=== PATIENT | male | born 1970 ===

== ENCOUNTER 2018-04-20 14:04 | Emergency (ER) | payer BC ==
[2018-04-20 14:16] VITALS: O2SAT 100
[2018-04-20] MEDS ORDERED: Sodium Chloride 0.9% 1,000 ML IV ONE (14:34)
--- NOTE | 2018-04-20 14:49 | C.PDOC ---
History Of Present Illness 47 year old male, with PMH of HTN, presents to ED with complaints of abdominal pain with associated nausea and vomiting since this morning. He reports subjective fever. Patient states he took Pepto-bismol without relief. He was seen today by his primary physician DR Baker who sent him to the ED for blood tests and Ultrasound and possible admission. On arrival to ED patient states the pain has gotten better. Denies having dysuria and hematuria. Time Seen by Provider: 04/20/18 14:23 Chief Complaint (Nursing): Abdominal Pain History Per: Patient History/Exam Limitations: no limitations Onset/Duration Of Symptoms: Hrs Current Symptoms Are (Timing): Still Present Severity: Moderate Past Medical History Reviewed: Historical Data, Nursing Documentation, Vital Signs Vital Signs: Last Vital Signs Temp 98.4 F 04/20/18 14:15 Pulse 88 04/20/18 14:15 Resp 20 04/20/18 14:15 BP 121/79 04/20/18 14:15 Pulse Ox 100 04/20/18 14:15 - Medical History PMH: HTN, Sleep Apnea Surgical History: No Surg Hx Family History: States: No Known Family Hx - Social History Hx Alcohol Use: No Hx Substance Use: No - Immunization History Hx Tetanus Toxoid Vaccination: No Hx Influenza Vaccination: No Hx Pneumococcal Vaccination: No Review Of Systems Except As Marked, All Systems Reviewed And Found Negative. Constitutional: Positive for: Fever (subjective fever). Negative for: Chills Gastrointestinal: Positive for: Nausea, Vomiting, Abdominal Pain Physical Exam - Physical Exam Appears: Non-toxic, No Acute Distress Skin: Normal Color, Warm, Dry Head: Atraumatic, Normacephalic Eye(s): bilateral: Normal Inspection Nose: Normal Oral Mucosa: Moist Neck: Supple Chest: Symmetrical Cardiovascular: Rhythm Regular Respiratory: Normal Breath Sounds, No Rales, No Rhonchi, No Wheezing Gastrointestinal/Abdominal: Soft, Tenderness (minimally tender lower abdomen), No Guarding, No Rebound Neurological/Psych: Oriented x3, Normal Speech ED Course And Treatment - Laboratory Results Result Diagrams: 04/20/18 14:57 04/20/18 14:57 Lab Interpretation: No Acute Changes O2 Sat by Pulse Oximetry: 100 (RA) Pulse Ox Interpretation: Normal - CT Scan/US abd/pelvis Other Rad Studies (CT/US): Read By Radiologist, Radiology Report Reviewed CT/US Interpretation: Accession No. : [id number]. Patient Name / ID : TONYA TREVIZO / [id number]. Exam Date : 04/20/2018 15:41:34 ( Approved ). Study Comment : Sex / Age : M / 47Y. Creator : Leslie Richardson. Dictator : Roxann Crow MD. Merchandise Handler : Banquet Kitchen Supervisor : Roxann Crow MD. Approver2 : Report Date : 04/20/2018 15:50:26. My Comment : . Date of service: 04/20/2018. PROCEDURE: CT Abdomen and Pelvis with contrast. HISTORY: lower abd pain. COMPARISON: None available. TECHNIQUE: Contrast dose: 100 mL Visipaque IV. Radiation dose: Total exam DLP = 1226.71 mGy-cm. This CT exam was performed using one or more of the following dose reduction techniques: Automated exposure control, adjustment of the mA and/or kV according to patient size, and/or use of iterative reconstruction technique. FINDINGS: LOWER THORAX: No visible consolidation, pleural effusion, or pneumothorax. LIVER: Hypoattenuation of the liver compatible with hepatic steatosis. GALLBLADDER AND BILE DUCTS: Unremarkable. PANCREAS: Unrem arkable. SPLEEN: Unremarkable. ADRENALS: Indeterminate 1.5 x 2.4 cm left adrenal gland mass measures approximately 51 HU, not consistent with an adenoma. Indeterminate 1.5 x 1.8 cm right adrenal gland mass measures approximately fifty-eight Hounsfield units, not consistent with an adenoma. KIDNEYS AND URETERS: The kidneys enhance symmetrically. No hydronephrosis or obstructing calculus identified. 16 mm exophytic left lower pole renal hypodense lesion measures approximately 5 HU consistent with a cyst. Too small to characterize 9 mm right renal hypodensity; statistically likely a cyst. VASCULATURE: No aortic aneurysm. No atherosclerotic calcification or mural plaque present. KANCHAN L: Lack of oral contrast limits evaluation for bowel pathology. Bowel loops appear within normal limits of caliber without evidence of obstruction. Diverticulosis without CT evidence of acute diverticulitis. APPENDIX: The appendix appears within normal limits of caliber. No secondary signs of acute appendicitis. PERITONEUM: No significant free fluid. No definite free air. LYMPH NODES: No bulky adenopathy identified. BLADDER: Under distended urinary bladder limits evaluation. REPRODUCTIVE: Prostate gland measures approximately 4.8 x 5.0 cm. BONES: No acute osseous abnormality is detected. OTHER FINDINGS: None. IMPRESSION: Indeterminate 1.5 x 2.4 cm left adrenal gland mass measures approximately 51 HU, not consistent with an adenoma. Indeterminate 1.5 x 1.8 cm right adrenal gland mass measures approximately fifty-eight Hounsfield units, not consistent with an adenoma. recommend further characterization with cross-sectional imaging utilizing adrenal gland protocol. Hypoattenuation of the liver compatible with hepatic steatosis. 16 mm exophytic left lower pole renal hypodense lesion measures approximately 5 HU consistent with a cyst. Too small to characterize 9 mm right renal hypodensity; statistically likely a cyst. Diverticulosis without CT evidence of acute diverticulitis. Medical Decision Making Medical Decision Making: Impression: abdominal pain Plan: * Labs * CT abd/pelvis * IV NS, Pepcid Progress: LAbs and CT reviewed. CT showed indeterminate 1.5 x 2.4 cm left adrenal gland mass measures approximately 51 HU, not consistent with an adenoma. Indeterminate 1.5 x 1.8 cm right adrenal gland mass measures approximately fifty-eight Hounsfield units, not consistent with an adenoma. Diverticulosis without CT evidence of acute diverticulitis. On re-evaluation the patient was resting comfortably and reported feeling better. He has no pain or fever at this time. I explained results to patient and gave copy of lab and CT reports. I recommended he follow up with his doctor and kidney doctor for further eval. Patient understands and stable for discharge Disposition Counseled Patient/Family Regarding: Diagnosis, Need For Followup, Rx Given - Disposition Referrals: Orion Baker [Staff Provider] - Disposition: HOME/ ROUTINE Disposition Time: 16:19 Condition: STABLE Additional Instructions: Your labs were normal. Your CT of abdomen shows diverticulosis and adrenal gland mass, please refer to report provided to you. You will need to follow up with your doctor outpatient for further care. Prescriptions: Famotidine [Pepcid] 20 mg PO DAILY #20 tab Instructions: Diverticulosis (DC) - POA Present On Arrival: None - Clinical Impression Clinical Impression: Abdominal colic, Diverticulosis, Mass of adrenal gland - PA / MAINTENANCE TECHNICIAN / Resident Statement MD/DO has reviewed & agrees with the documentation as recorded. - Scribe Statement The provider has reviewed the documentation as recorded by the Scribe Aurea Moreno Provider Attestation All medical record entries made by the Scribe were at my direction and personally dictated by me. I have reviewed the chart and agree that the record accurately reflects my personal performance of the history, physical exam, medical decision making, and the department course for this patient. I have also personally directed, reviewed, and agree with the discharge instructions and disposition.
[2018-04-20] MEDS ORDERED: Sodium Chloride 0.9% 1,000 ML ONE (14:51)
[2018-04-20 14:58] LABS: SQUAMOUS EPITHIAL < 1 /hpf (0-5); URINE BILIRUBIN NEGATIVE (NEGATIVE); URINE BLOOD 1+ (NEGATIVE); URINE CLARITY Clear (Clear); URINE COLOR Yellow (YELLOW); URINE GLUCOSE (UA) NORMAL (Normal); URINE LEUKOCYTE ESTERASE NEG Leu/uL (Negative); URINE PROTEIN NEGATIVE (NEGATIVE); URINE UROBILINOGEN NORMAL mg/dL (0.2-1.0)
[2018-04-20 15:00] LABS: BASO % 0.2 % (0.0-2.0); EOS % 0.1 % (0.0-4.0); HEMOGLOBIN 16.7 g/dL (12.0-18.0); LYMPH # 0.3 K/uL (1.0-4.3); LYMPH % 2.9 % (20.0-40.0); MEAN CELL VOLUME 85.7 fL (80.0-94.0); MONO # 0.4 K/uL (0.0-0.8); MONO % 3.6 % (0.0-10.0); NEUT # 11.2 K/uL (1.8-7.0); NEUT % 93.2 % (50.0-75.0); PLATELET COUNT 210 K/uL (130-400); RBC 5.56 Mil/uL (4.40-5.90); RED CELL DISTRIBUTION WIDTH 13.5 % (11.5-14.5); WHITE BLOOD COUNT 12.1 K/uL (4.8-10.8)
[2018-04-20 15:12] LABS: ALB/GLOB RATIO 1.5 (1.0-2.1); ALBUMIN 4.6 g/dL (3.5-5.0); ALT/SGPT 50 U/L (21-72); AST/SGOT 35 U/L (17-59); BLOOD UREA NITROGEN 24 mg/dL (9-20); CALCIUM 8.6 mg/dl (8.6-10.4); GFR NON-AFRICAN AMERICAN > 60; LIPASE 33 U/L (23-300)
[2018-04-20] MEDS ORDERED: Iodixanol 320 MG/ML 100 ML BOTTLE IV ONE (15:37)
[2018-04-20 15:38] LABS: BANDS 1 % (0-2); LYMPHOCYTE 3 % (20-40); MONOCYTE 3 % (0-10); NEUTROPHIL 93 % (50-75); PLATELET ESTIMATE NORMAL (NORMAL); TOTAL CELLS COUNTED 100
--- NOTE | 2018-04-20 16:09 | CT ---
Date of service: 04/20/2018 PROCEDURE: CT Abdomen and Pelvis with contrast HISTORY: lower abd pain COMPARISON: None available. TECHNIQUE: Contrast dose: 100 mL Visipaque IV Radiation dose: Total exam DLP = 1226.71 mGy-cm. This CT exam was performed using one or more of the following dose reduction techniques: Automated exposure control, adjustment of the mA and/or kV according to patient size, and/or use of iterative reconstruction technique. FINDINGS: LOWER THORAX: No visible consolidation, pleural effusion, or pneumothorax. LIVER: Hypoattenuation of the liver compatible with hepatic steatosis. GALLBLADDER AND BILE DUCTS: Unremarkable. PANCREAS: Unremarkable. SPLEEN: Unremarkable. ADRENALS: Indeterminate 1.5 x 2.4 cm left adrenal gland mass measures approximately 51 HU, not consistent with an adenoma. Indeterminate 1.5 x 1.8 cm right adrenal gland mass measures approximately fifty-eight Hounsfield units, not consistent with an adenoma. KIDNEYS AND URETERS: The kidneys enhance symmetrically. No hydronephrosis or obstructing calculus identified. 16 mm exophytic left lower pole renal hypodense lesion measures approximately 5 HU consistent with a cyst. Too small to characterize 9 mm right renal hypodensity; statistically likely a cyst. VASCULATURE: No aortic aneurysm. No atherosclerotic calcification or mural plaque present. BOWEL: Lack of oral contrast limits evaluation for bowel pathology. Bowel loops appear within normal limits of caliber without evidence of obstruction. Diverticulosis without CT evidence of acute diverticulitis. APPENDIX: The appendix appears within normal limits of caliber. No secondary signs of acute appendicitis. PERITONEUM: No significant free fluid. No definite free air. LYMPH NODES: No bulky adenopathy identified. BLADDER: Under distended urinary bladder limits evaluation. REPRODUCTIVE: Prostate gland measures approximately 4.8 x 5.0 cm. BONES: No acute osseous abnormality is detected. OTHER FINDINGS: None. IMPRESSION: Indeterminate 1.5 x 2.4 cm left adrenal gland mass measures approximately 51 HU, not consistent with an adenoma. Indeterminate 1.5 x 1.8 cm right adrenal gland mass measures approximately fifty-eight Hounsfield units, not consistent with an adenoma. recommend further characterization with cross-sectional imaging utilizing adrenal gland protocol. Hypoattenuation of the liver compatible with hepatic steatosis. 16 mm exophytic left lower pole renal hypodense lesion measures approximately 5 HU consistent with a cyst. Too small to characterize 9 mm right renal hypodensity; statistically likely a cyst. Diverticulosis without CT evidence of acute diverticulitis. Additional findings as above.
[2018-04-20 16:33] VITALS: BP 120/77; PULSE 85; RESP 17; TEMP 98.5
== END 2018-04-20 16:32 | disposition home or self-care (01) ==
LOC: C.ER 14:04
DX: K57.30 Diverticulosis of large intestine without perforation or abscess without bleeding (principal); E27.9 Disorder of adrenal gland, unspecified; R10.84 Generalized abdominal pain
CPT/HCPCS: 74177; 80053; 81001; 83690; 85025; 96361; 96374; 99284; J7030; Q9967